=== PATIENT | male | born 1950 | race Caucasian/White ===

== ENCOUNTER 2018-01-14 12:03 | Emergency (ER) | payer OTHER, SELFPAY ==
[2018-01-14 12:03] VITALS: BP 132/76; PULSE 87; RESP 16; TEMP 36.6; O2SAT 98; BMI 27.3
[2018-01-14 13:19] LABS: International Normalized Ratio 2.3; Prothrombin Time (Protime)PT. 25.5 SECONDS (11.7-14.9)
[2018-01-14 14:13] VITALS: BP 143/87; O2SAT 96
--- NOTE | 2018-01-14 14:13 | ED.VISSUMM ---
- ER Visit Summary Date of Service: 01/14/18 Chief Complaint: Headache History of Present Illness: The patient is a 67 M presenting for evaluation secondary to headache. Patient states over the course last 5 days he has been dealing with a relatively continuous headache that was gradual in onset. Patient states that the headache was preceded by a feeling of generalized malaise. Patient reports that he has been having some subjective fevers with this. Headache is frontal and bitemporal right being greater than left. It is worse with position better with Tylenol. Patient has not actually taken his temperature but is reporting subjective fevers. Denies any runny nose sore throat cough nausea vomiting diarrhea rashes neck stiffness or any other associated symptoms. Patient has a history of a head injury with brain surgery in the past, he is also on Coumadin and had a supratherapeutic INR couple days ago. Physical Examination: Vital signs: Within normal limits General: Well-nourished well-developed no acute distress Head: Normocephalic atraumatic, no temporal artery tenderness or vesicular rash noted. No sinus tenderness to percussion. Eyes: PERRLA, Neck: Supple, no lymphadenopathy, no JVD no meningismus. Negative Brudzinski, Kernig, jolt, and heel strike Cardiovascular: Heart regular rate and rhythm no murmurs Respiratory: Lung sounds clear to auscultation bilaterally no respiratory distress Abdomen: Soft, nontender Extremities: Nontender, no edema Skin: Normal color, no rash, no evidence of petechia Neuro: Alert and oriented ?4, cranial nerves II through XII intact, normal strength, sensation Test Results: CT brain shows postsurgical changes. INR was 2.3 Emergency Department Course and Treatment: Patient presented secondary to headache in the setting of a supratherapeutic INR. Imaging was obtained was negative for sinusitis or bleed or any other acute process. INR is now therapeutic at 2.3. Given the fact that the patient's headache is associated with a generalized infectious picture, he likely has an element of a viral illness. He does not have any presentation of a meningitis and I believe that further workup is necessary. Patient was recommended to resume his normal Coumadin tomorrow, and to take Tylenol for treatment of his discomfort. Disposition: Discharge Impression: 1. Viral illness This note was generated with [employer] software. It may contain incorrect words, spelling, and punctuation that were not noted in review of the chart prior to signing ED Disposition - Plan for ED Patient: Disposition: Home or Assisted Living Chief Complaint: Headache Diagnosis: Viral illness Instructions: ED Cephalgia Unspecified Referrals: Edy Ann DO [Primary Care Provider] - As Needed Additional Instructions: Do not take more than 3 grams (3000mg) of tylenol in a day
[2018-01-14 14:44] VITALS: RESP 14
== END 2018-01-14 14:45 | disposition home or self-care (01) ==
PROVIDERS: Emergency Provider Emergency Medicine; Family Provider Family Medicine; PCP Family Medicine
DX: B34.9 Viral infection, unspecified (principal); R51 Headache; Z79.01 Long term (current) use of anticoagulants; Z79.899 Other long term (current) drug therapy
CPT/HCPCS: 36415; 70450; 85610; 99281

== ENCOUNTER 2020-05-29 21:49 | Observation (INO) | payer OTHER, SELFPAY ==
[2020-05-29 21:50] VITALS: BP 153/89; PULSE 85; RESP 16; TEMP 36; O2SAT 98; BMI 25.6
--- NOTE | 2020-05-29 22:03 | EKG12_ITS ---
Test Reason : CP Blood Pressure : / mmHG Vent. Rate : 084 BPM Atrial Rate : 084 BPM P-R Int : 154 ms QRS Dur : 086 ms QT Int : 364 ms P-R-T Axes : 067 -12 051 degrees QTc Int : 430 ms Normal sinus rhythm Low voltage QRS (Limb Leads) Confirmed by KARLA LOPEZ, NARINDER ([id number]), desk editor CHINA SHAFER ([id number]) on 06/02/2020 9:52:03 AM Referred By: SRINI Confirmed By:NARINDER ACOSTA MD
--- NOTE | 2020-05-29 22:03 | ED.VIS.GEN ---
History of Present Illness Chief Complaint: Chest Pain Narrative: Patient presents with chest pain that started in his back, that radiated to the left side. This started earlier today. He described as an ache. He has no fever chills cough or congestion he has no tearing sensation. He has no cough or congestion no fever chills no abdominal pain no nausea vomiting or diarrhea. Past medical history: History of DVT and PE on Coumadin, seizure disorder on Keppra. Review of systems: All systems negative except as indicated General: Denies: Fever Eyes: Denies: Visual changes - bilaterally ENT: Denies: Rhinorrhea, Sore throat Cardiovascular: Chest pain as in HPI Respiratory: Denies: Dyspnea, Cough Gastrointestinal: Denies: Abdominal pain, Nausea, Vomiting Genitourinary: Denies: Dysuria Musculoskeletal: Denies: Myalgias Skin: Denies: Rash Neurological: Denies: Headache, no focal weakness Psych: Reports: negative Hematologic: Denies: Easy bruising, Easy bleeding Physical exam General: Well nourished, Well developed, No Acute Distress Head: Normocephalic, Atraumatic Eyes: Conjunctiva not pale ENT: Moist mucous membranes Neck: Supple, Nontender, No lymphadenopathy Cardiovascular: Regular rate, Regular rhythm Respiratory: No distress, CTA bilaterally Abdomen: Soft, Nontender, Nondistended Back: Nontender, Normal Inspection. Negative for: CVA tenderness Extremities: Nontender, No edema Skin: Normal color, No rash Neurological: Alert, Normal Strength, Normal Sensation Psychological: Normal affect Past Medical History - Allergies and Home Meds Allergies/Adverse Reactions: Allergies No Known Allergies Allergy (Verified 05/29/20 21:52) Primary Care Physician: Edy Ann DO [Primary Care Provider] - Surgical History: - - Neck surgery secondary to trauma, skull surgery secondary to trauma Smoking Status: Never smoker - Family History Maternal Family History: Reports: No pertinent history Paternal Family History: Reports: No pertinent history Physical Exam Vital Signs/Narrative: Vital Signs Temp Pulse Resp BP Pulse Ox 05/29/20 21:50 96.8 F L 85 16 153/89 H 98 Diagnostic/Tx/Re-eval Chest X-Ray - ED: 1 View, Read by ED Physician, Normal, Heart, Lungs, Mediastinum - Rhythm Strip Rhythm Strip: Sinus Rhythm Rate: 84 Ectopy: None - EKG Initial EKG Interpretation: - - Sinus rhythm with a rate of 84. Normal CO and QTc intervals. No ischemic changes seen. Interpreted by emergency doctor. - Medical Decision Making Patient has a heart score of 4 otherwise he has an unremarkable work-up. I will admit for further cardiac work-up. ED Disposition - Plan for ED Patient: Disposition: Home or Assisted Living Diagnosis: Chest pain Referrals: Edy Ann DO [Primary Care Provider] -
[2020-05-29 22:08] VITALS: O2SAT 97
[2020-05-29 22:13] LABS: Absolute Lymphocyte Count 2.49 X10^3/uL (0.83-4.51); Absolute Neutrophil Count 5.9 X10^3/uL (2.0-7.7); Basophil# 0.02 X10^3/uL; Basophil% 0.2 % (0-1); Eosinophil# 0.41 X10^3/uL; Eosinophils% 4.2 % (0-5); Hematocrit 33.5 % (40-54); Hemoglobin 10.5 g/dL (13.0-16.5); Lymphocyte # 2.49 X10^3/ul (4.0); Lymphocyte % 25.2 % (19-41); Mean Corp Hgb Conc 31.3 g/dL (32-36); Mean Corpuscular Hgb 26.8 pg (27.0-32.0); Mean Corpuscular Volume 85.5 fL (80-94); Mean Platelet Vol. 9.5 fl (6.2-12.0); Monocyte# 0.98 X10^3/uL; Monocyte% 9.9 % (0-10); NRBC Flagged by Analyzer 0 % (0-5); Neutrophil # 5.93 X10^3/uL (2.7-7.7); Neutrophil % 60.1 % (47-70); Platelet Count 272 K/mm3 (150-450); RBC Distribution Width CV 14.4 % (11.6-14.6); RBC Distribution Width SD 44.5 fl (35.1-43.9); Red Blood Count 3.92 M/mm3 (4.6-6.2); White Blood Count 9.9 K/mm3 (4.4-11.0)
[2020-05-29] MEDS: Aspirin 81 MG TAB.CHEW 324 MG PO (22:14)
--- NOTE | 2020-05-29 22:18 | RAD_ITS ---
STUDY: X-RAY CHEST REASON FOR EXAM: Male, 69 years old. CHEST PAIN THIS AM TECHNIQUE: Single AP portable view of the chest. COMPARISON: None. FINDINGS: Ill-defined subpleural groundglass opacities are seen more prominent in the lung bases , may represent atypical pneumonia or viral pneumonia (COVID-19 ?). There is no demonstrated pleural abnormality. Normal size heart. Normal mediastinum and nilesh. Normal visualized pulmonary arteries. Normal visualized aortic arch and descending thoracic aorta. There are diffuse degenerative changes of the visualized thoracic spine. There is degenerative osteoarthritis of the bilateral shoulders. There is no demonstrated abnormality of the visualized soft tissue structures of the upper abdomen. RAD/Chest 1 View (Portable) IMPRESSION: Ill-defined subpleural groundglass opacities are seen more prominent in the lung bases , may represent atypical pneumonia or viral pneumonia (COVID-19 ?). Electronically Signed: Chastity Purvis, at 22:41 EST Tel , Service support ,
[2020-05-29 22:23] LABS: International Normalized Ratio 2.4; Prothrombin Time (Protime)PT. 25.3 SECONDS (11.7-14.9)
[2020-05-29 22:28] LABS: Anion Gap 4 (5-15); BUN 23 mg/dL (7-18); BUN/Creat Ratio 26.7 RATIO (10-20); Calcium,Total 8.5 mg/dL (8.5-10.1); Chloride 107 mmol/L (98-107); Creatinine, Serum 0.86 mg/dL (0.70-1.30); EST Glomerular Filtration Rate 94 mL/min (>60); Est Glom Filt Rate - Afr Amer 113 mL/min (>60); Estimated Creatinine Clearance 81.07 ml/min; Glucose 115 mg/dL (74-106); Potassium 3.8 mmol/L (3.5-5.1); Sodium Level 139 mmol/L (136-145)
--- NOTE | 2020-05-29 23:00 | CT_ITS ---
STUDY: CTA CHEST REASON FOR EXAM: Male, 69 years old. CHEST PAIN. History of previous PE RADIATION DOSAGE (If Supplied By Facility): CTDIvol = ( 6.22 ) mGy, DLP = ( 282.52 ) mGycm TECHNIQUE: The examination was performed with the intravenous administration of IV 100mL Isovue-300. Post-processing of the angiographic images was performed, with multiplanar reformation and 3D reconstruction. Individualized dose optimization techniques were used for this CT. COMPARISON: 06/05/2015, which showed extensive PE. FINDINGS: Normal enhancement of the main pulmonary artery and right and left pulmonary arteries. Normal enhancement of the bilateral peripheral pulmonary arteries. There is no demonstrated pulmonary embolism. Normal thoracic aorta and visualized great vessels. There is no demonstrated aortic dissection. Normal heart and pericardium. There are calcifications of the coronary arteries. Normal mediastinum. Stable bilateral mild hilar adenopathy. Normal visualized trachea and bronchi. The lungs are well expanded. Stable irregular 1.5 cm nodule of the mid right lung adjacent to the minor fissure. No definite infiltrates. No effusions. There are degenerative changes of thoracic spine. Normal visualized upper abdomen. CT/CTA Chest W/WO Contrast IMPRESSION: Normal CTA chest examination, without a demonstrated pulmonary embolism or arterial dissection. Stable irregular nodule of the right upper lobe. No evidence for acute chest disease. Electronically Signed: Jamal Zendejas MD at 23:41 EST , Service support ,
--- NOTE | 2020-05-29 23:02 | HP.PCM_ITS ---
Problem List (1) Chest pain Status: Acute Qualifiers: Chest pain type: unspecified Qualified Code(s): R07.9 - Chest pain, unspecified (2) Pulmonary embolism Status: Chronic Qualifiers: Pulmonary embolism type: unspecified Chronicity: chronic Acute cor pulmonale presence: unspecified Qualified Code(s): I27.82 - Chronic pulmonary embolism (3) Right leg DVT Status: Chronic Qualifiers: Affected thrombotic vein of extremity: unspecified vein of extremity Chronicity: acute Qualified Code(s): I82.401 - Acute embolism and thrombosis of unspecified deep veins of right lower extremity History of Present Illness Date of Admission: 05/29/20 Chief Complaint: Chest pain - 1 day The patient is a 69 year old M with a past medical history of right leg DVT/PE, on Coumadin who comes in with complaints of chest pain that happened today. Patient is [employer] and was at work when he decided to go to get some supplies from the shop. He had a sudden onset of pain, described as pinched pain, patient located suddenly, was located between his shoulder blades, associated with diaphoresis, shortness of breath. This later on radiated to the anterior aspect of his chest. He felt lightheaded and went back to his ride to go and lie down. He raised his legs up onto the windowsill and started to feel better. The whole episode lasted for about 15 minutes. Patient admits to having had Covid a couple of months prior. He did not require oxygen. Vitals in the ED showed temperature 96.8 F, blood pressure 153/89, respiratory rate 16, heart rate 85, SPO2 98% on room air. His WBC count was 9.9, hemoglobin 10.5, platelet count 272, INR 2.4, BMP was unremarkable. Admitting chest x-ray showed ill-defined subpleural groundglass opacities, more prominent in the lung bases. CT of the chest was negative for acute PE. No infiltrates were seen. Past Medical History Past Medical History (Chronic Problems): Chronic Problems Right leg DVT (Chronic) Pulmonary embolism (Chronic) Allergies No Known Allergies Allergy (Verified 05/29/20 21:52) Home Medications: Ambulatory Orders Medication Instructions Recorded Warfarin [Coumadin] 5 mg PO DAILY #30 tablet 06/06/15 levETIRAcetam tablet [Keppra 250 mg PO BID 01/14/18 tablet] Surgical History: herniorrhaphy, - - Neck surgery secondary to trauma, skull surgery secondary to trauma, status post finger surgery Psychiatric History: No pertinent psych hx Lives: Spouse/ Significant Other Smoking Status: Never smoker Tobacco Use: Non-smoker Alcohol: None Drugs: None - *Family History Maternal History Items: No pertinent history Paternal History Items: Heart Disease - [place] Review of Systems Constitutional: Denies: Anorexia, Chills, Fever, Malaise, Weakness, Weight Change, Fatigue Eyes: Denies: Blurred vision, Cataracts, Conjunctivae Inflammation, Pain, Redness, Vision Change HEENT: Denies: Difficulty Hearing, Difficulty Swallowing, Head Aches, Hearing Changes, Nasal bleeding, Sinus Congestion, Sinus Drainage Cardiovascular: Reports: Chest Pain, Chest Pressure, Chest Tightness, Light Headedness. Denies: Claudication, Orthopnea, Palpitations, Paroxysmal Noc. Dyspnea Respiratory: Denies: Cough, Hemoptysis, Shortness of breath at rest, Shortness of breath upon exertion, Sputum production Gastrointestinal: Denies: Abdominal Pain, Constipation, Diarrhea, Hematemesis, Hematochezia, Nausea, Vomiting Genitourinary: Denies: Dysuria Musculoskeletal: Denies: Joint Pain, Joint Tenderness Skin: Denies: Rash, Wounds Neurological: Denies: Numbness, Tingling, Focal weakness Psychiatric: Denies: Anxiety, Depression, Homicidal Ideations, Suicidal Ideations Hematologic/ Lymphatic: Denies: Easy Bruising, Easy Bleeding VTE Information - Inpt Only VTE Present on Admission: No VTE Pharm Prophylaxis ordered?: Yes Patient Problems: Active and Suspected Problems Chest pain (Acute) - Physical Exam Vitals/I&O's: Vital Signs Temp Pulse Resp BP Pulse Ox 96.8 F L 85 16 153/89 H 97 05/29/20 21:50 05/29/20 21:50 05/29/20 21:50 05/29/20 21:50 05/29/20 22:08 Oxygen Delivery Method Room Air Weight: 78.7 kg Body Mass Index (BMI) 25.6 General: Alert, Oriented x3, Cooperative, No apparent distress HEENT: Atraumatic, PERRLA, EOMI, Normocephalic Oral: Moist Mucosa Neck: Supple Lungs: Clear to auscultation, Normal air movement Cardiovascular: Regular rate, Regular Rhythm, Normal S1, Normal S2, No murmurs Abdomen: Bowel Sounds Present, Soft, Non Tender, Non-Distended, No Hepato- splenomegaly Extremities: No edema Skin: No rashes Musculoskeletal: No Tenderness to Palpation of Joints or Extremities Lymphatic: No Cervical, Supraclavicular, or Inguinal Adenopathy Neurological: Cranial nerves II-XII grossly intact, Neuro grossly intact Psych/Mental Status: Normal Affect, Appropriate Laboratory Results 05/29/20 21:58: WBC 9.9, RBC 3.92 L, Hgb 10.5 L, Hct 33.5 L, MCV 85.5, MCH 26.8 L, MCHC 31.3 L, RDW Std Deviation 44.5 H, RDW Coeff of Cony 14.4, Plt Count 272, MPV 9.5, Immature Gran % (Auto) 0.400, Neut % (Auto) 60.1, Lymph % (Auto) 25.2, [place] % (Auto) 9.9, Eos % (Auto) 4.2, Baso % (Auto) 0.2, Absolute Neuts (auto) 5.9, Absolute Lymphs (auto) 2.49, Nucleated RBC % 0 05/29/20 21:58: PT 25.3 H, INR 2.4 05/29/20 21:58: Sodium 139, Potassium 3.8, Chloride 107, Carbon Dioxide 28.0, Anion Gap 4 L, BUN 23 H, Creatinine 0.86, Estim Creat Clear Calc 81.07, Est GFR (MDRD) Af Amer 113, Est GFR (MDRD) Non-Af 94, BUN/Creatinine Ratio 26.7 H, Glucose 115 H, Calcium 8.5, Troponin I < 0.015 Current Medications Iopamidol (Contrast Allergy Safety Check) 0 ml IV X1 ANGIE Assessment/Plan All Active Problems Chest pain (Acute) Right leg swelling (Acute) 1. Acute chest pain, concerning for possible acute coronary syndrome Patient admitting EKG shows no acute ST-T changes, troponins negative We will admit to PCU, trend troponins, stress test in a.m. 2. Abnormal chest x-ray secondary to recent COVID-19 infection No evidence of current COVID-19 infection, not symptomatic CTA of the chest did not show any infiltrates. 3. History of PE/DVT, on Coumadin INR therapeutic, continue on Coumadin, INR checks in a.m. 4. 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 DVT prophylaxis?INR therapeutic 6. CODE STATUS: Full code I discussed and explained in details the various types of CODE STATUS-full code, DNR CCA, DNR CC. Patient has a living will but wants full measures in the event of a cardiopulmonary arrest. He then wants his POA/family decide if he remains in a permanently vegetative state. Time spent discussing CODE STATUS 18 minutes OBSV E&M: 93028 Initial observation care L3 Procedures: [id number] Advncd Care Plan 30 Min
[2020-05-29 23:32] VITALS: BP 138/80; PULSE 82; RESP 14; TEMP 36.5; O2SAT 98
[2020-05-30] VITALS (7 sets, daily range): BP systolic 127–152; BP diastolic 77–78; PULSE 67–94; RESP 15–18; TEMP 36.7–36.8; O2SAT 96–99; BMI 25.1
[2020-05-30] MEDS: levETIRAcetam 250 MG Tablet PO ×2 (00:53→10:54)
[2020-05-30 01:01] LABS: AST(SGOT) 12 U/L (15-37); Alanine Aminotransfer ALT/SGPT 18 U/L (16-61); Albumin, Serum 2.6 g/dL (3.2-5.0); Alkaline Phosphatase 93 U/L (45-117); Bilirubin, Direct 0.09 mg/dL (0.00-0.30); Globulin 4.3 g/dL (2.2-4.2); Protein, Total 6.9 g/dL (6.4-8.2)
--- NOTE | 2020-05-30 01:39 | EKG12_ITS ---
Test Reason : CP ADMISSION Blood Pressure : / mmHG Vent. Rate : 073 BPM Atrial Rate : 073 BPM P-R Int : 162 ms QRS Dur : 094 ms QT Int : 388 ms P-R-T Axes : 060 -10 040 degrees QTc Int : 427 ms Normal sinus rhythm Normal ECG When compared with ECG of 05-JUN-2015 12:38, No significant change was found Confirmed by BETHANY LOPEZ, YAYO ([id number]), editorial director CHINA SHAFER ([id number]) on 06/02/2020 9:45:43 AM Referred By: YOAN Confirmed By:YAYO SIMS MD
[2020-05-30 03:53] LABS: Absolute Lymphocyte Count 2.17 X10^3/uL (0.83-4.51); Absolute Neutrophil Count 5.9 X10^3/uL (2.0-7.7); Basophil# 0.02 X10^3/uL; Basophil% 0.2 % (0-1); Eosinophil# 0.49 X10^3/uL; Eosinophils% 5.2 % (0-5); Hematocrit 33.6 % (40-54); Hemoglobin 10.6 g/dL (13.0-16.5); Lymphocyte # 2.17 X10^3/ul (4.0); Lymphocyte % 23.1 % (19-41); Mean Corp Hgb Conc 31.5 g/dL (32-36); Mean Corpuscular Volume 85.5 fL (80-94); Mean Platelet Vol. 9.6 fl (6.2-12.0); Monocyte# 0.78 X10^3/uL; Monocyte% 8.3 % (0-10); NRBC Flagged by Analyzer 0 % (0-5); Neutrophil % 62.9 % (47-70); Platelet Count 253 K/mm3 (150-450); RBC Distribution Width CV 14.5 % (11.6-14.6); RBC Distribution Width SD 44.6 fl (35.1-43.9); Red Blood Count 3.93 M/mm3 (4.6-6.2); White Blood Count 9.4 K/mm3 (4.4-11.0)
[2020-05-30 04:01] LABS: International Normalized Ratio 2.5; Prothrombin Time (Protime)PT. 26.5 SECONDS (11.7-14.9)
[2020-05-30 04:17] LABS: ALB/GLOB Ratio 0.6 RATIO (0.9-2.4); AST(SGOT) 14 U/L (15-37); Alanine Aminotransfer ALT/SGPT 18 U/L (16-61); Albumin, Serum 2.4 g/dL (3.2-5.0); Alkaline Phosphatase 84 U/L (45-117); Anion Gap 7 (5-15); BUN 21 mg/dL (7-18); BUN/Creat Ratio 30.9 RATIO (10-20); Calcium,Total 8.3 mg/dL (8.5-10.1); Chloride 106 mmol/L (98-107); Cholesterol 206 mg/dL (200); Creatinine, Serum 0.68 mg/dL (0.70-1.30); EST Glomerular Filtration Rate 123 mL/min (>60); Est Glom Filt Rate - Afr Amer 149 mL/min (>60); Estimated Creatinine Clearance 69.72 ml/min; Glucose 101 mg/dL (74-106); High Density Lipoprotein 47 mg/dL; Potassium 3.7 mmol/L (3.5-5.1); Protein, Total 6.4 g/dL (6.4-8.2); Sodium Level 139 mmol/L (136-145); Triglycerides 60 mg/dL; Very Low Density Lipoprotein 12 mg/dL (5-40)
--- NOTE | 2020-05-30 11:53 | STRESSREP ---
Stress Test Report Date: Procedure: Exercise tolerance test/imaging study Indications: Chest pain Consent: Per the patient Procedure: The patient exercised on a Raulito protocol for 6 minutes and 30 seconds completing Stage II and 30 seconds of Stage III achieving a peak heart rate of 148 bpm (98% predicted maximal heart rate) with a peak blood pressure 184/76 mmHg and a peak MET capacity of 8 METs. The baseline ECG demonstrated normal sinus rhythm. The peak exercise ECG demonstrated somatic/motion artifact with no obvious ECG changes. There was an isolated PVC during exercise and a rare PAC during recovery. The functional capacity was considered good. There was no complaint of chest discomfort during exercise or recovery. The examination was discontinued secondary to dyspnea. Impression: 1. Technically adequate (percent predicted maximal heart rate greater than 85%) exercise tolerance test 2. Peak exercise ECG with somatic/motion artifact with no obvious ECG changes 3. There was an isolated PVC during exercise and a rare PVC during recovery 4. Nuclear images pending Myocardial perfusion imaging study: Technique: The patient was injected with 11.3 mCi of technetium 99m Cardiolite and subsequently rest SPECT Cardiolite nuclear imaging was obtained in the horizontal long, vertical long, and short axis views. The patient exercised on a Raulito protocol for 6 minutes and 30 seconds completing Stage II and 30 seconds of Stage III achieving a peak heart rate of 148 bpm (98% predicted maximal heart rate) with a peak blood pressure 184/76 mmHg and a peak MET capacity of 8 METs. The patient was injected with 34.2 mCi of technetium 99m Cardiolite and subsequently stress SPECT Cardiolite nuclear imaging was obtained in the horizontal long, vertical long, and short axis views. A gated Cardiolite study at peak stress was obtained. Interpretation: Rest and stress SPECT Cardiolite nuclear imaging status post realignment, normalization, and attenuation correction, demonstrates the appearance of relative uniform tracer uptake and myocardial perfusion appearing within normal limits. There is end systolic thickening and brightening. The gated Cardiolite study demonstrates myocardial thickening and inward wall motion. The reported LVEF is 76%. Impression: 1. Rest and stress SPECT Cardiolite nuclear imaging demonstrate relative uniform tracer uptake and myocardial perfusion appearing within normal limits. 2. The gated Cardiolite study reports an LVEF of 76%. This note was generated with [employer] software. It may contain incorrect words, spelling, and punctuation that were not noted in checking the note before signing.
--- NOTE | 2020-05-30 12:00 | DCINST_ITS ---
- Discharge Diagnoses Current Active Problems: Current Active and Chronic Problems Chest pain (Acute) Right leg DVT (Chronic) Pulmonary embolism (Chronic) You will use the following diet at home:: No restrictions Your food should be the consistency of: Regular Your liquids should be the consistency of: Regular/Thin Discharge Activity: Return to Normal Activity Weight Bearing Status: Full weight bearing Allergies/Adverse Reactions: Allergies No Known Allergies Allergy (Verified 05/29/20 21:52) Medications to take at Discharge Warfarin [Coumadin] 5 mg PO DAILY #30 tablet 06/06/15 levETIRAcetam tablet [Keppra tablet] 250 mg PO DAILY 01/14/18 Primary Care Physician: Edy Ann DO [Primary Care Provider] - Please follow up with your Primary Care Physician in: in one week Test Results: Test results from this visit will be discussed in further detail at your follow- up appointment, if applicable.
--- NOTE | 2020-05-30 14:30 | NURSING ---
Patient discharged home into the care of family. IV dc and pressure held. NADN at this time. VSS. Pt verbalized understanding of dc instructions and all questions answered by RN. Pt taken to discharge area in wheelchair via [facility] personal.
--- NOTE | 2020-06-01 11:09 | PCM.DC.SUM ---
Discharge Date and Diagnosis - Problem List Patient Problems: Active and Suspected Problems Chest pain (Acute) Date of Admission: 05/29/20 Date of Discharge: 05/30/20 - Primary Discharge Diagnosis Acute Problems: Active Problems #1 musculoskeletal chest pain #2 seizure disorder - Secondary Discharge Diagnosis Chronic Problems: Chronic Problems Right leg DVT (Chronic) Pulmonary embolism (Chronic) Hospital Course and Treatment Operations: None Procedures: Nuclear stress test Summary of Care Provided: The patient is a 69 year old M was seen in the emergency room at [facility] with a chief complaint of back pain that radiated into the chest area and radiated to his left side. He described the pain as being an ache. Work-up in the emergency room included cardiac enzymes which were unremarkable, CT of the chest showed a chronic irregular nodule of the right upper lobe but no active chest disease. EKG did not show any evidence of acute ischemic changes. Patient was placed in observation status on PCU, cardiac enzymes were cycled and these remain normal, patient underwent a nuclear stress test which was negative for reversible ischemia. On 05/30/2020, patient was seen and examined: On examination he appeared in good health and spirits. Vital signs as documented. Skin warm and dry and without overt rashes. Neck without JVD, neck was supple, trachea midline, thyroid was normal. Lungs clear bilaterally, normal air movement was noted. Heart exam notable for regular rhythm, normal sounds and absence of murmurs, rubs or gallops. Abdomen unremarkable and without evidence of organomegaly, masses, or abdominal aortic enlargement. Bowel sounds are present, abdomen is not distended. Extremities nonedematous, no cyanosis was noted, no clubbing was noted. Neuro: Cranial nerves II through XII are grossly intact, no focal motor deficits were noted, sensation to light touch and pinprick intact, motor exam 5/5 throughout. Psych: Patient is alert and oriented x3, he does not appear anxious or depressed, he does not appear agitated. Patient appears stable for discharge on 05/30/2020. Patient Problems: Active and Suspected Problems Chest pain (Acute) - Physical Exam Vitals/I&O's: Vital Signs Temp Pulse Resp BP Pulse Ox 981 F H 94 18 127/78 H 99 05/30/20 10:51 05/30/20 10:51 05/30/20 10:51 05/30/20 10:51 05/30/20 10:51 Oxygen Delivery Method Room Air Weight: 77.1 kg Body Mass Index (BMI) 25.1 Intake and Output for Last 24 Hours 05/30/20 05/31/20 06/01/20 23:59 23:59 23:59 Intake Total 0 / 0 Balance 0 / 0 Discharge Activity: Return to Normal Activity Weight Bearing Status: Full weight bearing Home Medications: Medications to take at Discharge Warfarin [Coumadin] 5 mg PO DAILY #30 tablet 06/06/15 levETIRAcetam tablet [Keppra tablet] 250 mg PO DAILY 01/14/18 Primary Care Physician: Edy Ann DO [Primary Care Provider] - Please follow up with your Primary Care Physician in: in one week Please Follow Up With: Edy Ann DO Disposition: Home Minutes spent on discharge:: 31 Patient Condition:: Stable Medical Necessity - Tobacco Use Smoking Status: Never smoker Tobacco Use: Non-smoker Meaningful Use Info Meaningful Use Diagnoses (Choose all that apply): None applicable OBSV E&M: 26621 Observation care discharge
== END 2020-05-30 12:00 | disposition home or self-care (01) ==
LOC: ED 22:51 → PCU 05-30 06:27
PROVIDERS: Admitting Provider Internal Medicine; Emergency Provider Emergency Medicine; PCP Family Medicine; Visit Provider Internal Medicine
DX: R07.89 Other chest pain (principal); M54.9 Dorsalgia, unspecified; G40.909 Epilepsy, unspecified, not intractable, without status epilepticus; Z79.899 Other long term (current) drug therapy; Z86.711 Personal history of pulmonary embolism; Z86.718 Personal history of other venous thrombosis and embolism; Z79.01 Long term (current) use of anticoagulants; Z86.16 Personal history of COVID-19
CPT/HCPCS: 36415; 71045; 71275; 78452; 80048; 80053; 80061; 80076; 84484; 85025; 85610; 93005; 93017; 99218; 99251; 99285; A9500; Q9967; A4216; G0378; G0463

== ENCOUNTER → 2020-12-23 | Outpatient (CLI) | payer SELFPAY ==
[2020-05-30 00:40] VITALS: BMI 25.1
[2020-12-23 13:26] LABS: International Normalized Ratio 2.6; Prothrombin Time (Protime)PT. 27.3 SECONDS (11.7-14.9)
== END | disposition home or self-care (01) ==
LOC: LABSPEC 12:53
PROVIDERS: PCP Family Medicine; Referring Provider Family Medicine; Visit Provider Family Medicine
DX: Z86.718 Personal history of other venous thrombosis and embolism (principal); Z86.711 Personal history of pulmonary embolism; Z79.01 Long term (current) use of anticoagulants
CPT/HCPCS: 85610